=== PATIENT | male | born 1985 | race Caucasian/White ===

== ENCOUNTER → 2020-04-14 09:33 | Outpatient (CLI) | payer SELFPAY | END | disposition home or self-care (01) | LOC: D.NM 09:30 | PROVIDERS: ATTEND Nurse Practitioner | DX: R10.9 Unspecified abdominal pain (principal) ==

== ENCOUNTER 2020-05-10 13:32 | Emergency (ER) | payer SELFPAY ==
[~2020-05-10] VITALS: Ht 188 cm; Wt 97.5 kg
[~2020-05-10 13:32] MED LIST: KLONOPIN0.5 MG PO; OMEPRAZOLE20 M1 PO; PROZAC20 MG PO; TOPROL XL25 MG PO
[2020-05-10 13:39] VITALS: Ht 188 cm; Wt 97.5 kg
[2020-05-10 14:38] LABS: BASOPHILS 0.3 % (0-2); EOSINOPHILS 1.1 % (0-7); HEMATOCRIT 46.1 % (42.0-54.0); HEMOGLOBIN 15.9 g/dL (13.5-17.5); IMMATURE GRANULOCYTES 0.3 % (0-5); LYMPHOCYTES 24.1 % (15-50); MCH 30.3 pg (26.0-34.0); MCHC 34.5 g/dL (31.0-37.0); MEAN PLATELET VOLUME 9.1 fL (7.4-10.4); MONOCYTES 10.8 % (2-11); NEUTROPHILS 63.4 % (40-80); PLATELET COUNT 253 10x3/uL (130-400); RBC 5.24 10x6/uL (4.20-6.10); RDW 12.4 % (11.5-14.5); WBC 11.1 10x3/uL (4.8-10.8)
[2020-05-10 14:54] LABS: CALC OSMOLALITY 274 mosm/kg (275-300); CALCIUM 9.5 mg/dL (8.5-10.1); CARBON DIOXIDE 29.6 mmol/L (21.0-32.0); CHLORIDE - SERUM 99 mmol/L (98-107); CREATININE - SERUM 1.1 mg/dL (0.6-1.3); GLUCOSE 90 mg/dL (74-106); POTASSIUM - SERUM 4.1 mmol/L (3.5-5.1); SODIUM 138 mmol/L (136-145); UREA NITROGEN 10 mg/dL (7-18); eGFR NON AFRICAN AMERICAN 80 mL/min (90-120)
[2020-05-10 15:04] LABS: ALBUMIN 4.1 g/dL (3.4-5.0); ALKALINE PHOSPHATASE 115 U/L (30-120); ALT (SGPT) 87 U/L (10-68); AMYLASE - SERUM 50 U/L (25-115); BILIRUBIN - TOTAL 0.93 mg/dL (0.2-1.3); LIPASE 172 U/L (73-393); PROTEIN - SERUM 7.8 g/dL (6.4-8.2)
[2020-05-10 15:08] LABS: TROPONIN-I < 0.017 ng/mL (0.000-0.060)
[2020-05-10 15:42] LABS: BILIRUBIN NEGATIVE (NEGATIVE); KETONE NEGATIVE (NEGATIVE); NITRITE NEGATIVE (NEGATIVE); UROBILINOGEN NORMAL mg/dL (< 2)
[2020-05-10 18:49] VITALS: BP 132/72
== END 2020-05-10 18:49 | disposition home or self-care (01) ==
LOC: D.ER 13:32
PROVIDERS: Family Medicine
DX: R10.11 Right upper quadrant pain (principal); G89.18 Other acute postprocedural pain; I10 Essential (primary) hypertension; K21.9 Gastro-esophageal reflux disease without esophagitis